=== PATIENT | male | born 1955 | race Two or more races ===

== ENCOUNTER 2025-01-13 17:03 | Inpatient (IN) | payer MEDICARE, OTHER ==
[~2025-01-13] VITALS: Ht 177.8 cm; Wt 95.3 kg
[2025-01-13 17:36] LABS: PLATELET COUNT (AUTO) 275 K/uL (150-450); RED BLOOD CELL COUNT(AUTO) 5.58 MIL/uL (4.5-6.0); RED CELL DISTRIBUTION WIDTH 17.9 % (11.5-15.0); WHITE BLOOD COUNT (AUTO) 8.2 K/uL (4.3-11.0)
[2025-01-13 17:55] LABS: CALCIUM, SERUM 8.6 mg/dL (8.5-10.1); CREATININE 1.1 mg/dL (0.6-1.3); SODIUM SERUM 140 mmol/L (136-145); UREA NITROGEN, BLOOD 10 mg/dL (7-18)
[2025-01-13] MEDS ORDERED: FUROSEMIDE 20 MG/2 ML VIAL ONE (18:02)
[2025-01-13] MEDS: FUROSEMIDE 20 MG/2 ML VIAL IV ONE (18:05)
[2025-01-13] MEDS ORDERED: INSU100I40 SQ (18:12)
[2025-01-13] MEDS ORDERED: POLY17PO4 PO (18:12)
[2025-01-13] MEDS ORDERED: EMPA10TA PO (18:12)
[2025-01-13] MEDS ORDERED: AMLO5TAB4 PO (18:12)
[2025-01-13] MEDS ORDERED: MULT-447 PO (18:12)
[2025-01-13] MEDS ORDERED: PANT40TA2 PO (18:12)
[2025-01-13] MEDS ORDERED: LACO100T2 PO (18:12)
[2025-01-13] MEDS ORDERED: ACET-868 PO (18:12)
[2025-01-13] MEDS ORDERED: INSU100I30 SQ (18:12)
[2025-01-13] MEDS ORDERED: METF-442 PO (18:12)
[2025-01-13] MEDS ORDERED: SENN8.6T19 PO (18:12)
[2025-01-13 18:18] LABS: NT-PRO BNP 250 pg/mL (0-125)
[2025-01-13] MEDS ORDERED: MAG HYDROX/AL HYDROX/SIMETH 30 ML UDC PO PRN (19:30)
[2025-01-13] MEDS ORDERED: MAGNESIUM HYDROXIDE 30 ML UDC PO PRN (19:30)
[2025-01-13] MEDS ORDERED: ONDANSETRON HCL/PF 4 MG/2 ML VIAL IVP PRN (19:30)
[2025-01-13 21:00] VITALS: BP 139/94; TEMP 98; O2SAT 91
[2025-01-13 21:11] LABS: ABG BASE EXCESS 4.1 mmol/L (-2.0-3.0); ABG OXYGEN SATURATION 93.2 % (94.0-98.0); ABG PCO2 81.0 mmHg (35.0-48.0); ABG PH 7.241 (7.350-7.450); ABG PO2 79.2 mmHg (83.0-108.0); ABG TOTAL HEMOGLOBIN 12.9 G/dL (13.5-17.5); SET RATE, BG 16.0; SITE, ABG RIGHT RADIAL
[2025-01-13 22:00] VITALS: BP 128/73; O2SAT 96
[2025-01-13 23:00] VITALS: BP 122/82; O2SAT 97
[2025-01-14] VITALS (26 sets, daily range): BP systolic 99–156; BP diastolic 66–97; TEMP 98–99.5; O2SAT 84–98
[2025-01-14 05:05] LABS: PLATELET COUNT (AUTO) 302 K/uL (150-450); RED BLOOD CELL COUNT(AUTO) 5.68 MIL/uL (4.5-6.0); RED CELL DISTRIBUTION WIDTH 17.8 % (11.5-15.0); WHITE BLOOD COUNT (AUTO) 7.6 K/uL (4.3-11.0)
[2025-01-14 05:57] LABS: ASPARTATE AMINOTRANSFERASE 28.0 U/L (15-37); CALCIUM, SERUM 8.3 mg/dL (8.5-10.1); CREATININE 0.9 mg/dL (0.6-1.3); PHOSPHORUS 3.2 mg/dL (2.5-4.9); SODIUM SERUM 141.0 mmol/L (136-145); TOTAL PROTEIN, SERUM 7.0 g/dL (6.4-8.2); UREA NITROGEN, BLOOD 9.0 mg/dL (7-18)
[2025-01-14] MEDS ORDERED: FUROSEMIDE 20 MG/2 ML VIAL IV SCH ×2 (09:00)
[2025-01-14] MEDS: AMLODIPINE BESYLATE 5 MG TABLET PO SCH (09:00)
[2025-01-14] MEDS: EMPAGLIFLOZIN 10 MG TABLET PO SCH (09:00)
[2025-01-14] MEDS: MULTIVIT W/MINERALS 1 TAB TABLET PO SCH (09:21)
[2025-01-14] MEDS: Z GUARD REMEDY 4 OZ OINT TP SCH (09:21)
[2025-01-14] MEDS: LACOSAMIDE 50 MG TABLET PO SCH (09:22)
[2025-01-14] MEDS: ACETAMINOPHEN 325 MG TABLET PO PRN (09:22)
[2025-01-14] MEDS: PANTOPRAZOLE 40 MG VIAL IV SCH (09:23)
[2025-01-14] MEDS: Z GUARD REMEDY 4 OZ OINT TP PRN (09:23)
[2025-01-14] MEDS: CLOTRIMAZOLE 1% 15 GM TUBE TP SCH ×2 (09:23→17:31)
[2025-01-14] MEDS: BUMETANIDE INJ 8 MG in IV NS 0.9% 48 ML IV ONE (09:24)
[2025-01-14] MEDS ORDERED: DEXTROSE 50%-WATER 50 ML DISP.SYRIN IV PRN (10:30)
[2025-01-14] MEDS: BLOOD SUGAR DIAGNOSTIC 1 EACH STRIP IN SCH (12:51)
[2025-01-14] MEDS: IPRATROPIUM NEB FS 0.5 MG/2.5 ML AMPUL.NEB NEB SCH (14:00)
[2025-01-14 14:22] LABS: ABG BASE EXCESS 6.8 mmol/L (-2.0-3.0); ABG OXYGEN SATURATION 85.2 % (94.0-98.0); ABG PCO2 74.2 mmHg (35.0-48.0); ABG PH 7.302 (7.350-7.450); ABG PO2 55.7 mmHg (83.0-108.0); ABG TOTAL HEMOGLOBIN 13.5 G/dL (13.5-17.5); FLOW, BLOOD GAS 6.00 L/min (0.00-30.00); FRACTIONATED INSPIRED OXYGEN 45.0 %; SITE, ABG RIGHT RADIAL
[2025-01-14] MEDS: INSULIN REGULAR, HUMAN 100 UNIT/ML 3 ML VIAL SQ PRN (17:38)
[2025-01-15] VITALS (31 sets, daily range): BP systolic 116–146; BP diastolic 49–92; TEMP 98–98.6; O2SAT 75–99
[2025-01-15 04:27] LABS: PLATELET COUNT (AUTO) 237 K/uL (150-450); RED BLOOD CELL COUNT(AUTO) 5.24 MIL/uL (4.5-6.0); RED CELL DISTRIBUTION WIDTH 17.7 % (11.5-15.0); WHITE BLOOD COUNT (AUTO) 7.5 K/uL (4.3-11.0)
[2025-01-15 04:42] LABS: ASPARTATE AMINOTRANSFERASE 23 U/L (15-37); CALCIUM, SERUM 7.8 mg/dL (8.5-10.1); CREATININE 1.1 mg/dL (0.6-1.3); PHOSPHORUS 3.0 mg/dL (2.5-4.9); TOTAL PROTEIN, SERUM 6.8 g/dL (6.4-8.2); UREA NITROGEN, BLOOD 12 mg/dL (7-18)
[2025-01-15 04:52] LABS: SODIUM SERUM 139 mmol/L (136-145)
[2025-01-15 08:33] LABS: ABG BASE EXCESS 13.3 mmol/L (-2.0-3.0); ABG OXYGEN SATURATION 83.4 % (94.0-98.0); ABG PCO2 97.3 mmHg (35.0-48.0); ABG PH 7.276 (7.350-7.450); ABG PO2 55.1 mmHg (83.0-108.0); ABG TOTAL HEMOGLOBIN 12.9 G/dL (13.5-17.5); FLOW, BLOOD GAS 6.00 L/min (0.00-30.00); FRACTIONATED INSPIRED OXYGEN 44.0 %; SITE, ABG VBG - N/A
[2025-01-15] MEDS: PANTOPRAZOLE 40 MG/PACK PACK PO SCH (09:35)
[2025-01-15] MEDS: POTASSIUM CHLORIDE 20 MEQ POWDER PACKET PO ONE (11:28)
[2025-01-15 21:29] LABS: APPEARANCE,URINE CLEAR (CLEAR); BLOOD, URINE 2+ Ery/uL (NEGATIVE); LEUKOCYTE ESTERASE ,URINE NEGATIVE (NEGATIVE); NITRITE, URINE NEGATIVE (NEGATIVE); UGLUCOSE 3+ mg/dL (NEGATIVE)
[2025-01-15 21:50] LABS: ADD URINE CULTURE YES; SQUAMOUS EPITHELIAL CELL,UR Moderate /HPF (None Seen)
[2025-01-15 21:59] LABS: EOSINOPHIL,URINE None Seen
[2025-01-15 22:26] LABS: CREATININE, URINE 72.2 MG/DL (30.0-125.0); URINE SODIUM, RANDOM 8.0 mmol/l (40-220); URINE TOTAL PROTEIN 287.3 mg/dL (0-11.9)
[2025-01-16] VITALS (43 sets, daily range): BP systolic 109–141; BP diastolic 62–106; TEMP 97.5–98; O2SAT 79–100
[2025-01-16 09:47] LABS: PLATELET COUNT (AUTO) 296 K/uL (150-450); RED BLOOD CELL COUNT(AUTO) 5.57 MIL/uL (4.5-6.0); RED CELL DISTRIBUTION WIDTH 17.5 % (11.5-15.0); WHITE BLOOD COUNT (AUTO) 7.7 K/uL (4.3-11.0)
[2025-01-16 09:57] LABS: CALCIUM, SERUM 8.6 mg/dL (8.5-10.1); CREATININE 1.0 mg/dL (0.6-1.3); SODIUM SERUM 144.0 mmol/L (136-145); UREA NITROGEN, BLOOD 14.0 mg/dL (7-18)
[2025-01-16 10:44] LABS: ABG BASE EXCESS 10.3 mmol/L (-2.0-3.0); ABG OXYGEN SATURATION 85.0 % (94.0-98.0); ABG PCO2 60.3 mmHg (35.0-48.0); ABG PH 7.408 (7.350-7.450); ABG PO2 51.3 mmHg (83.0-108.0); ABG TOTAL HEMOGLOBIN 13.3 G/dL (13.5-17.5); FLOW, BLOOD GAS 4.00 L/min (0.00-30.00); FRACTIONATED INSPIRED OXYGEN 36.0 %; SITE, ABG LEFT RADIAL
[2025-01-17] VITALS (41 sets, daily range): BP systolic 114–149; BP diastolic 60–103; TEMP 97.5–98.2; O2SAT 89–99
[2025-01-17 10:09] LABS: PLATELET COUNT (AUTO) 288 K/uL (150-450); RED BLOOD CELL COUNT(AUTO) 5.57 MIL/uL (4.5-6.0); RED CELL DISTRIBUTION WIDTH 17.4 % (11.5-15.0); WHITE BLOOD COUNT (AUTO) 7.5 K/uL (4.3-11.0)
[2025-01-17 10:44] LABS: CALCIUM, SERUM 8.8 mg/dL (8.5-10.1); CREATININE 1.0 mg/dL (0.6-1.3); SODIUM SERUM 141.0 mmol/L (136-145); UREA NITROGEN, BLOOD 12.0 mg/dL (7-18)
[2025-01-17 10:50] LABS: ASPARTATE AMINOTRANSFERASE 24.0 U/L (15-37); PHOSPHORUS 2.5 mg/dL (2.5-4.9); TOTAL PROTEIN, SERUM 7.1 g/dL (6.4-8.2)
[2025-01-18] VITALS (18 sets, daily range): BP systolic 114–146; BP diastolic 69–95; TEMP 97.7–98.7; O2SAT 87–98
[2025-01-18 04:31] LABS: PLATELET COUNT (AUTO) 298 K/uL (150-450); RED BLOOD CELL COUNT(AUTO) 5.53 MIL/uL (4.5-6.0); RED CELL DISTRIBUTION WIDTH 17.5 % (11.5-15.0); WHITE BLOOD COUNT (AUTO) 6.4 K/uL (4.3-11.0)
[2025-01-18 04:40] LABS: CALCIUM, SERUM 8.4 mg/dL (8.5-10.1); CREATININE 0.9 mg/dL (0.6-1.3); PHOSPHORUS 2.6 mg/dL (2.5-4.9); SODIUM SERUM 141.0 mmol/L (136-145); UREA NITROGEN, BLOOD 11.0 mg/dL (7-18)
[2025-01-18 04:59] LABS: EOSINOPHILS % (MANUAL) 7 % (0-4); LYMPHOCYTES % (MANUAL) 14 % (16-48); MONOCYTES % (MANUAL) 9 % (0-11.0); NEUTROPHILS % (MANUAL) 70 (42-76); PLATELET ESTIMATE ADEQUATE
[2025-01-18] MEDS ORDERED: IPRATROPIUM NEB FS 0.5 MG/2.5 ML AMPUL.NEB NEB PRN (11:00)
[2025-01-19] VITALS: BP 111/61; TEMP 98.1; O2SAT 94
[2025-01-19 04:00] VITALS: BP 121/82; TEMP 98.2; O2SAT 90
[2025-01-19 07:45] LABS: PLATELET COUNT (AUTO) 270 K/uL (150-450); RED BLOOD CELL COUNT(AUTO) 5.73 MIL/uL (4.5-6.0); RED CELL DISTRIBUTION WIDTH 17.5 % (11.5-15.0); WHITE BLOOD COUNT (AUTO) 6.5 K/uL (4.3-11.0)
[2025-01-19 08:00] VITALS: BP 132/77; TEMP 97.9; O2SAT 95
[2025-01-19 08:00] LABS: CALCIUM, SERUM 8.7 mg/dL (8.5-10.1); CREATININE 0.8 mg/dL (0.6-1.3); PHOSPHORUS 2.9 mg/dL (2.5-4.9); SODIUM SERUM 140.0 mmol/L (136-145); UREA NITROGEN, BLOOD 9.0 mg/dL (7-18)
[2025-01-19 08:03] LABS: ERYTHROCYTE SEDIMENTATION RATE 115 MM/HR (0-20)
[2025-01-19 09:46] LABS: ABG BASE EXCESS 6.5 mmol/L (-2.0-3.0); ABG OXYGEN SATURATION 87.0 % (94.0-98.0); ABG PCO2 67.1 mmHg (35.0-48.0); ABG PH 7.331 (7.350-7.450); ABG PO2 55.8 mmHg (83.0-108.0); ABG TOTAL HEMOGLOBIN 13.5 G/dL (13.5-17.5); FLOW, BLOOD GAS 3.00 L/min (0.00-30.00); FRACTIONATED INSPIRED OXYGEN 32.0 %; SITE, ABG LEFT RADIAL
[2025-01-19] MEDS: FUROSEMIDE 40 MG/4 ML VIAL IV SCH (09:46)
[2025-01-19] MEDS: POTASSIUM CHLORIDE 20 MEQ TAB.PRT.SR PO SCH (09:48)
[2025-01-19 16:00] VITALS: BP 115/71; TEMP 98.1; O2SAT 94
[2025-01-19] MEDS: ENOXAPARIN SODIUM 40 MG/0.4 ML DISP.SYRIN SQ SCH (16:36)
[2025-01-19 20:00] VITALS: BP 126/84; TEMP 98.1; O2SAT 94
[2025-01-20] VITALS: BP 135/82; TEMP 98.1; O2SAT 95
[2025-01-20 04:00] VITALS: BP 128/72; TEMP 97.8; O2SAT 97
[2025-01-20 07:36] LABS: PLATELET COUNT (AUTO) 323 K/uL (150-450); RED BLOOD CELL COUNT(AUTO) 5.98 MIL/uL (4.5-6.0); RED CELL DISTRIBUTION WIDTH 17.7 % (11.5-15.0); WHITE BLOOD COUNT (AUTO) 6.5 K/uL (4.3-11.0)
[2025-01-20 07:58] LABS: ASPARTATE AMINOTRANSFERASE 23.0 U/L (15-37); CALCIUM, SERUM 9.5 mg/dL (8.5-10.1); CREATININE 1.1 mg/dL (0.6-1.3); PHOSPHORUS 3.5 mg/dL (2.5-4.9); SODIUM SERUM 137.0 mmol/L (136-145); TOTAL PROTEIN, SERUM 7.6 g/dL (6.4-8.2); UREA NITROGEN, BLOOD 11.0 mg/dL (7-18)
[2025-01-20] MEDS: LEVOFLOXACIN (250MG) 250 MG TABLET PO SCH (15:10)
[2025-01-20 20:00] VITALS: BP 130/91; TEMP 98.4; O2SAT 97
[2025-01-21] VITALS: BP 135/87; TEMP 97.9; O2SAT 97
[2025-01-21 05:00] VITALS: BP 147/83; TEMP 98.2; O2SAT 97
[2025-01-21 07:12] LABS: CALCIUM, SERUM 9.8 mg/dL (8.5-10.1); CREATININE 1.0 mg/dL (0.6-1.3); PHOSPHORUS 3.3 mg/dL (2.5-4.9); SODIUM SERUM 136.0 mmol/L (136-145); UREA NITROGEN, BLOOD 12.0 mg/dL (7-18)
[2025-01-21 07:18] LABS: PLATELET COUNT (AUTO) 321 K/uL (150-450); RED BLOOD CELL COUNT(AUTO) 6.29 MIL/uL (4.5-6.0); RED CELL DISTRIBUTION WIDTH 18.4 % (11.5-15.0); WHITE BLOOD COUNT (AUTO) 8.3 K/uL (4.3-11.0)
[2025-01-21 07:30] VITALS: BP 153/103; TEMP 98.1; O2SAT 94
[2025-01-21 08:07] LABS: COMPLEMENT C3, SERUM 194 mg/dL (82-167); COMPLEMENT C4, SERUM 32 mg/dL (12-38)
[2025-01-21 08:26] VITALS: BP 153/103
[2025-01-21] MEDS: FUROSEMIDE 40 MG TABLET PO SCH (09:07)
[2025-01-21] MEDS: POTASSIUM CHLORIDE 20 MEQ POWDER PACKET PO SCH (09:07)
[2025-01-21 11:12] LABS: *ANA ANTI-CENTROMERE B AB <0.2 AI (0.0-0.9); *ANA ANTI-DNA(DS) AB, QN <1 IU/mL (0-9); *ANA ANTI-JO-1 <0.2 AI (0.0-0.9); *ANA ANTICHROMATIN ANTIBODY <0.2 AI (0.0-0.9); *ANA RNP ANTIBODIES 1.5 AI (0.0-0.9); *ANA SJOGREN'S ANTI-SS-A <0.2 AI (0.0-0.9); *ANA SJOGREN'S ANTI-SS-B <0.2 AI (0.0-0.9); *ANAANTI-SCLERODERMA-70 AB <0.2 AI (0.0-0.9); *ANASMITH AB <0.2 AI (0.0-0.9)
[2025-01-21] MEDS ORDERED: POTA20TA83 PO (12:13)
[2025-01-21] MEDS ORDERED: PRED20TA PO (12:13)
[2025-01-21] MEDS ORDERED: LEVO500T90 PO (12:13)
[2025-01-21] MEDS ORDERED: FURO-144 PO (12:13)
== END 2025-01-21 16:44 | DRG 291 ==
LOC: ER 17:16 → ICU 20:08 → TELE 01-18 14:07
PROVIDERS: ATTEND Nurse Practitioner Family
PROC: 5A09357 Assistance with Respiratory Ventilation, Less than 24 Consecutive Hours, Continuous Positive Airway Pressure (ICD-10-PCS; principal; 2025-01-13)
DX: I13.0 Hypertensive heart and chronic kidney disease with heart failure and stage 1 through stage 4 chronic kidney disease, or unspecified chronic kidney disease (principal); G93.41 Metabolic encephalopathy; J96.21 Acute and chronic respiratory failure with hypoxia; I50.33 Acute on chronic diastolic (congestive) heart failure; J96.22 Acute and chronic respiratory failure with hypercapnia; E66.2 Morbid (severe) obesity with alveolar hypoventilation; L03.116 Cellulitis of left lower limb; E87.29 Other acidosis; N17.9 Acute kidney failure, unspecified; J84.9 Interstitial pulmonary disease, unspecified; G40.909 Epilepsy, unspecified, not intractable, without status epilepticus; B35.1 Tinea unguium; L60.3 Nail dystrophy; N18.2 Chronic kidney disease, stage 2 (mild); Z79.4 Long term (current) use of insulin; D64.9 Anemia, unspecified; K21.9 Gastro-esophageal reflux disease without esophagitis; Z79.84 Long term (current) use of oral hypoglycemic drugs; E11.22 Type 2 diabetes mellitus with diabetic chronic kidney disease; Z68.30 Body mass index [BMI] 30.0-30.9, adult; Z91.199 Patient's noncompliance with other medical treatment and regimen due to unspecified reason
CPT/HCPCS: 36415; 36600; 71045-TC; 71250-TC; 76770-TC; 80048-TC; 80053-TC; 81001; 82570-TC; 82803-TC; 82962-TC; 83735-TC; 83880; 84100-TC; 84300-TC; 84484-TC; 85025-TC; 85027-TC; 85652-TC; 86225; 86235; 86803; 87081-TC; 87086-TC; 87340; 93307-TC; 93970-TC; 94799-TC; 99082-TC; A4223; A4349; A6403; G0378; J1650; J1815; J1938; J2470; J3490; J7050